=== PATIENT | female | born 1950 | race Caucasian/White ===

== ENCOUNTER 2017-06-30 20:06 | Outpatient (CLI) | payer MEDICARE, OTHER ==
[~2017-06-30 20:06] MED LIST: AMLO10TA82 PO; AMLO5TAB2 PO; ASCO500T20 PO; ASP81CT PO; ASPI-983 PO; ATEN25TA PO; ATOR40TA PO; ATR20T PO; ATRV10T PO; B 12; BIOT5TAB PO; C250T PO; CIPR-225 PO; CLOP75TA PO; DESV50TA PO; DIPH-450 PO; DOXA1TAB PO; FLT05NA16 NS; GBPN300C PO; LISI10TA2 PO; LISI40TA PO; LSNP10T PO; MELO7.5T PO; MNTL10T PO; NAPR-243 PO; NATURAL LAXATIVE PO; NEBI5TAB8 PO; OMEG-12 PO; OMEP20CA12 PO; OXYB5TAB9 PO; PRAS10TA6 PO; RANI75TA30 PO; RNT150T PO; SENN17.26 PO; SENN25TA9 PO; TRAM-21 PO; TRAZ150T42 PO; prestiq PO
== END 2017-07-01 05:45 | disposition home or self-care (01) ==
LOC: SLEEP 20:06
PROVIDERS: ATTEND Nurse Practitioner Family
DX: G47.33 Obstructive sleep apnea (adult) (pediatric) (principal)
CPT/HCPCS: 95811

== ENCOUNTER → 2017-11-07 | Outpatient (CLI) | payer MEDICARE ==
--- NOTE | 2017-11-07 13:06 | Diagnostic Imaging Report ---
PA and lateral views of the chest. INDICATION: COPD. COMPARISON: 09/17/2015. FINDINGS: The lungs are hyperinflated with prominent interstitial markings. Minimal bibasilar atelectasis is seen. Calcified granulomas in the lower right lung are seen. The heart size is normal. No effusion or pneumothorax. The mediastinum and eric appear unremarkable. IMPRESSION: COPD. Minimal bibasilar atelectasis. Dictated by: Dictated on workstation # [id number]
== END ==
LOC: RAD 10:43
PROVIDERS: ATTEND Nurse Practitioner Family
DX: J44.9 Chronic obstructive pulmonary disease, unspecified (principal); F17.201 Nicotine dependence, unspecified, in remission
CPT/HCPCS: 71020

== ENCOUNTER → 2017-11-30 | Outpatient (CLI) | payer MEDICARE | LOC: CARD 12:53 | PROVIDERS: ATTEND Internal Medicine Cardiovascular Disease | DX: I35.1 Nonrheumatic aortic (valve) insufficiency (principal); I25.10 Atherosclerotic heart disease of native coronary artery without angina pectoris; I10 Essential (primary) hypertension; I70.293 Other atherosclerosis of native arteries of extremities, bilateral legs | CPT/HCPCS: 93306 ==

== ENCOUNTER → 2018-08-10 | Outpatient (CLI) | payer MEDICARE, OTHER ==
--- NOTE | 2018-08-10 12:40 | Diagnostic Imaging Report ---
INDICATION: Cough for one week. TIME OF EXAM: 11:07 AM COMPARISON: Correlation is made with prior study from 11/07/2017. FINDINGS: The heart size is stable. The lungs are hyperinflated consistent with COPD. Calcified granuloma in the right base is stable. There are generalized interstitial changes which are likely chronic. Chronic blunting of the left costophrenic angle is noted consistent with minimal pleural fluid or pleural thickening. There is no pneumothorax. IMPRESSION: Overall stable appearance of the chest when compared to examination from 11/07/2017. Dictated by: Dictated on workstation # [id number]
== END ==
LOC: RAD 10:31
PROVIDERS: ATTEND Nurse Practitioner Family
DX: J44.9 Chronic obstructive pulmonary disease, unspecified (principal); J30.9 Allergic rhinitis, unspecified; J40 Bronchitis, not specified as acute or chronic
CPT/HCPCS: 71046

== ENCOUNTER → 2019-05-13 | Outpatient (CLI) | payer OTHER, MEDICARE ==
[~2019-05-13] MED LIST changes: +CATHETER FLUSH 10 ML SYR IV PRN; +REGADENOSON 0.4 MG/5 ML SYR (LEXISCAN) IV ONE
[2019-05-13 09:51] VITALS: BP 170/81
[2019-05-13 09:56] VITALS: BP 162/76
--- NOTE | 2019-05-14 18:43 | STRESS TEST ---
DATE OF SERVICE: 05/13/2019 LEXISCAN MYOVIEW STRESS TEST REFERRING PHYSICIAN: Dr. Woo. Baseline heart rate is 60. Baseline blood pressure 170/80. Baseline EKG is sinus rhythm with atrial premature contractions. SUMMARY: The patient was injected with 10.01 mCi of technetium-99 Myoview and the resting images were obtained. Then, the patient received 0.4 mg of Lexiscan followed by 29.1 mCi of technetium-99 Myoview. Throughout the test, there were no EKG changes. The resting and stress images were reviewed and compared in the short axis, horizontal long axis, and vertical long axis views. Review of the images showed good radiotracer uptake with no significant ischemia or infarction. SSS is 3, SDS 2, TID value 1.08. On the gated images, the left ventricle appeared to be in normal size with normal contractility. Calculated ejection fraction 55%. CONCLUSION: 1. The patient tolerated Lexiscan well. 2. No ischemia or infarction on SPECT images. 3. Normal left ventricular size with normal contractility. Calculated ejection fraction 55%. Job ID: [id number] DocumentID: [id number] Dictated Date: 05/14/2019 16:15:36 Industrial Equipment Mechanic Date: 05/14/2019 18:43:03 Dictated By: KRISTEN GELLER MD
== END ==
LOC: CARD 08:02
PROVIDERS: ATTEND Internal Medicine Cardiovascular Disease
DX: I71.4 Abdominal aortic aneurysm, without rupture (principal); I35.1 Nonrheumatic aortic (valve) insufficiency; I25.10 Atherosclerotic heart disease of native coronary artery without angina pectoris; I73.9 Peripheral vascular disease, unspecified; I10 Essential (primary) hypertension
CPT/HCPCS: 78452; 93017

== ENCOUNTER → 2019-07-08 | Outpatient (CLI) | payer MEDICARE, OTHER ==
[~2019-07-08] MED LIST changes: -CATHETER FLUSH 10 ML SYR IV PRN; -OMEP20CA12 PO; +OMEP20CA13 PO; -REGADENOSON 0.4 MG/5 ML SYR (LEXISCAN) IV ONE
--- NOTE | 2019-07-08 14:50 | Diagnostic Imaging Report ---
EXAMINATION: Chest CT without contrast (lung cancer screening). HISTORY: 15-taxg-pjll history of smoking. FINDINGS: No comparison available. Lungs are severely emphysematous. There is bronchial wall thickening in keeping with chronic bronchitis. No suspicious pulmonary nodules are seen. No edema or pneumonia. No pleural effusion or pneumothorax. Heart size is normal with trace amount of pericardial fluid. Aorta is normal in caliber. There is no axillary, supraclavicular or mediastinal lymphadenopathy. There are moderate coronary artery calcifications. There is a small fat containing Bochdalek hernia on the left. There are no suspicious osseous lesions. IMPRESSION: 1. No suspicious pulmonary nodules. LungRads category: 1 Modifier: None Dictated by: Dictated on workstation # [id number]
== END ==
LOC: RAD 10:40
PROVIDERS: ATTEND Nurse Practitioner Family
DX: Z12.2 Encounter for screening for malignant neoplasm of respiratory organs (principal)

== ENCOUNTER → 2020-01-29 | Outpatient (CLI) | payer MEDICARE ==
[~2020-01-29] MED LIST changes: -OMEP20CA13 PO; +OMEP20CA18 PO; +OXYB5TAB13 PO; -OXYB5TAB9 PO
--- NOTE | 2020-01-29 08:50 | Diagnostic Imaging Report ---
PROCEDURE: CT abdomen and pelvis without contrast. TECHNIQUE: Multiple contiguous axial images were obtained through the abdomen and pelvis without the use of intravenous contrast. Auto Exposure Controls were utilized during the CT exam to meet ALARA standards for radiation dose reduction. INDICATION: Urinary tract infection. FINDINGS: The previous CT abdomen/pelvis exam of 02/08/2013 noted postoperative changes consistent with prior aortofemoral bypass procedure. Those findings are again evident on this study. The patency of the graft is difficult to assess as intravenous contrast was not utilized for this exam. If further study is desired, then ultrasound would be recommended. In the interval since the prior study, minute nonobstructive calculi have developed in both kidneys. The kidneys themselves do not appear to be obstructed and there is no distortion of the perinephric fat to suggest pyelonephritis. Even so, clinical follow-up is recommended. In the interval since the prior exam a 1.7 cm rounded area of low density has developed along the posterior aspect of the left kidney. I suspect that this is a cyst. Ultrasound would be recommended to confirm this. The liver and spleen are not enlarged. There are several calcifications scattered throughout the spleen and a few calcifications in the liver. These are nonspecific but may be a sequela of prior exposure to histoplasmosis. The pancreas, the adrenals, the gallbladder and the inferior vena cava seem similar to the prior exam. The stomach is not well-distended and consequently difficult to assess. The images through the pelvis again show that the uterus is surgically absent. The urinary bladder is grossly unremarkable. There is no pelvic mass or free fluid collection evident. The appendix is not well-visualized but there are no indirect signs of acute appendicitis. The bone windows show no sign of a fracture or of a destructive lesion. The compression deformity of the superior endplate of L2 seen previously is again evident and not significantly changed. The lung bases are generally clear. There are chronic pulmonary changes evident however. IMPRESSION: 1. There is no acute abnormality of the abdomen or pelvis. In particular, there is no evidence for pyelonephritis. Correlation with patient's urinalysis would be recommended however. 2. There are small nonobstructive calculi within both kidneys. There also appears to be a left renal cyst. Ultrasound could confirm that this is indeed a cyst. 3. The aortofemoral bypass graft seen previously is again evident. If further evaluation of the patency of the graft is desired, then ultrasound would also be recommended. Dictated by: Dictated on workstation # [id number]
== END ==
LOC: RAD 07:44
PROVIDERS: ATTEND Urology
DX: N20.0 Calculus of kidney (principal); N32.81 Overactive bladder; N39.46 Mixed incontinence; R35.8 Other polyuria; Z87.440 Personal history of urinary (tract) infections
CPT/HCPCS: 74176

== ENCOUNTER → 2020-02-03 | Outpatient (CLI) | payer MEDICARE, OTHER | LOC: CARD 10:00 | PROVIDERS: ATTEND Internal Medicine Cardiovascular Disease | DX: I73.9 Peripheral vascular disease, unspecified (principal); I10 Essential (primary) hypertension; I25.10 Atherosclerotic heart disease of native coronary artery without angina pectoris; I35.1 Nonrheumatic aortic (valve) insufficiency; R00.2 Palpitations | CPT/HCPCS: 93306 ==

== ENCOUNTER → 2020-07-09 | Outpatient (CLI) | payer MEDICARE ==
--- NOTE | 2020-07-09 09:53 | Diagnostic Imaging Report ---
CT Lung Screening INDICATION:`1a1 TECHNIQUE: Noncontrast, low-dose CT imaging performed according to the lung cancer screening protocol. Auto Exposure Controls were utilize during the CT exam to meet ALARA standards for radiation dose reduction. COMPARISON:1`2 FINDINGS:Evaluation of the lung duncan demonstrate no suspicious pulmonary nodule or mass. Scattered benign calcified granuloma are noted. There is no focal consolidation, large effusion, nor pneumothorax. Advanced emphysematous disease is again noted. Cardiomediastinal structures show normal heart size. There is small pericardial effusion. Moderate calcified aortic and coronary atherosclerosis is present. A few small mediastinal lymph nodes are noted. No pathologically enlarged or morphologically abnormal adenopathy is identified within the eric or axilla. Osseous structures show no acute abnormalities. No lytic or blastic bony lesions are seen. Included portions of the upper abdomen are unremarkable as well. IMPRESSION: 1. No new suspicious pulmonary nodule or mass. Continued follow-up with annual low dose CT chest is recommended. 2. Redemonstration of background advanced emphysematous disease and moderate calcified aortic and coronary atherosclerosis. LUNG-RADS CATEGORY:1-S MODIFIER:As above OTHER SIGNIFICANT FINDINGS: As Above. Dictated by: Dictated on workstation # [id number]
== END ==
LOC: RAD 08:12
PROVIDERS: ATTEND Nurse Practitioner Family
DX: Z12.2 Encounter for screening for malignant neoplasm of respiratory organs (principal); J43.9 Emphysema, unspecified; I70.0 Atherosclerosis of aorta; I25.10 Atherosclerotic heart disease of native coronary artery without angina pectoris; F17.201 Nicotine dependence, unspecified, in remission

== ENCOUNTER → 2020-07-23 | Outpatient (CLI) | payer MEDICARE ==
--- NOTE | 2020-07-23 10:47 | Diagnostic Imaging Report ---
INDICATION: Abdominal aortic aneurysm and hypertension. Only the proximal abdominal aorta could be well visualized. Proximal aorta is approximately 1.8 cm AP x 2.0 cm transverse. The mid and distal aorta are poorly visualized due to overlying bowel gas. IMPRESSION: Limited study. Proximal aorta is unremarkable. Mid and distal aorta were not well visualized. If there is concern for abdominal aortic aneurysm, CT would be recommended for further evaluation. Dictated by: Dictated on workstation # [id number]
== END ==
LOC: RAD 08:00
PROVIDERS: ATTEND Physician Assistant
DX: I71.4 Abdominal aortic aneurysm, without rupture (principal); I25.10 Atherosclerotic heart disease of native coronary artery without angina pectoris; I10 Essential (primary) hypertension; I73.9 Peripheral vascular disease, unspecified
CPT/HCPCS: 76775

== ENCOUNTER → 2021-07-12 | Outpatient (CLI) | payer MEDICARE ==
[~2021-07-12] MED LIST changes: +ASPI-1238 PO; -ASPI-983 PO; -LISI10TA2 PO; +LISI10TA25 PO; -LISI40TA PO; +LISI40TA9 PO
--- NOTE | 2021-07-12 13:59 | Diagnostic Imaging Report ---
EXAMINATION: CT chest without contrast (lung screening). TECHNIQUE: Multiple contiguous axial images were obtained through the chest without the use of intravenous contrast according to lung cancer screening protocol. All CT scans use one or more of the following dose optimizing techniques: Automated exposure control, MA and/or KvP adjustment based on patient size and exam type or iterative reconstruction. HISTORY: 99-fchr-foxo history of smoking. COMPARISON: CT screening 07/09/2020. FINDINGS: Thyroid: The thyroid is normal. Mediastinum: Heart size is normal with small pericardial effusion. Calcifications of the aorta and coronary vessels. Thoracic aorta is normal in caliber. No suspicious lymphadenopathy. Lungs and airways: Background emphysematous changes of the lungs. No consolidation, pleural effusion, or pneumothorax. Scattered calcified granulomas. Atelectasis is present within the lung bases. No suspicious pulmonary nodule. The airways are normal. Upper abdomen: The subphrenic structures are normal. Musculoskeletal: Degenerative changes of the spine without suspicious osseous lesion or compression fracture. IMPRESSION: 1. No suspicious pulmonary nodules. Recommend continued annual low-dose CT screening. 2. COPD. LUNG-RADS CATEGORY: 1 MODIFIER: S Dictated by: Dictated on workstation # [id number]
== END ==
LOC: RAD 12:45
PROVIDERS: ATTEND Nurse Practitioner Family
DX: Z12.2 Encounter for screening for malignant neoplasm of respiratory organs (principal); Z87.891 Personal history of nicotine dependence
CPT/HCPCS: 71271

== ENCOUNTER → 2021-08-09 | Outpatient (CLI) | payer MEDICARE ==
[~2021-08-09] MED LIST changes: +RT-ALBUTEROL SULF 2.5 MG/3 ML PRE-MIX VIAL IH ONE; +RT-ALBUTEROL SULF 2.5 MG/3 ML PRE-MIX VIAL INH ONE
--- NOTE | 2021-08-09 14:10 | Diagnostic Imaging Report ---
PROCEDURE: CT urinary tract, rule out kidney stone. TECHNIQUE: Multiple contiguous axial images were obtained through the abdomen and pelvis without the use of intravenous contrast. Auto Exposure Controls were utilized during the CT exam to meet ALARA standards for radiation dose reduction. INDICATION: Frequent urinary tract infections. COMPARISON: Comparison is made with prior CT from 01/29/2020. FINDINGS: The lung bases are clear of acute infiltrates. The liver is unremarkable. The gallbladder is contracted. There is no biliary ductal dilatation. The pancreas and spleen are unremarkable. No adrenal mass is identified. Calcific densities within both kidneys are again noted, indeterminate between nephrolithiasis versus vascular calcifications. The low-density lesion in the left kidney appears stable at 18 mm. No ureteral calculi or hydronephrosis is detected. Aortobifemoral graft is again noted. Bowel loops are normal in caliber. There is no obstruction. The bladder is unremarkable. There is no free fluid or fluid collection. No inflammatory changes are identified. IMPRESSION: Stable noncontrast CT of the abdomen and pelvis when compared with exam from 01/29/2020. No acute abnormality is identified. Dictated by: Dictated on workstation # [id number]
== END ==
LOC: RAD 13:45
PROVIDERS: ATTEND Nurse Practitioner Family
DX: J44.9 Chronic obstructive pulmonary disease, unspecified (principal); N39.0 Urinary tract infection, site not specified
CPT/HCPCS: 74176; 94060; 94726; 94729

== ENCOUNTER → 2021-08-23 | Outpatient (CLI) | payer MEDICARE ==
[~2021-08-23] MED LIST changes: -RT-ALBUTEROL SULF 2.5 MG/3 ML PRE-MIX VIAL IH ONE; -RT-ALBUTEROL SULF 2.5 MG/3 ML PRE-MIX VIAL INH ONE
--- NOTE | 2021-08-23 16:34 | Diagnostic Imaging Report ---
PROCEDURE: US Renal Bilateral. TECHNIQUE: Multiple real-time grayscale images were obtained over the kidneys in various projections bilaterally. INDICATION: Left kidney lesion noted on recent CT. Correlation is made with CT study from 08/09/2021. Right kidney measures 8.7 x 4.2 x 4.6 cm and the left kidney measures 8.9 x 4.4 x 4.4 cm. Cortical thickness and echogenicity is normal. There is a hypoechoic lesion in the left kidney measuring 1.8 x 1.5 x 1.9 cm. No internal vascularity is seen. This is suggestive of a cyst. No calculi or hydronephrosis is seen. Bladder is unremarkable although the right ureteral jet was not visualized. IMPRESSION: Probable cyst lower pole left kidney correlating with CT abnormality. Dictated by: Dictated on workstation # [id number]
== END ==
LOC: RAD 12:00
PROVIDERS: ATTEND Nurse Practitioner Family
DX: N28.9 Disorder of kidney and ureter, unspecified (principal)
CPT/HCPCS: 76770

== ENCOUNTER → 2022-01-24 | Outpatient (CLI) | payer MEDICARE ==
[~2022-01-24] VITALS: Ht 162 cm; Wt 73.0 kg
[~2022-01-24] MED LIST changes: +CATHETER FLUSH 10 ML SYR IVP PRN; +REGADENOSON 0.4 MG/5 ML SYR (LEXISCAN) IV ONE
[2022-01-24 09:49] VITALS: BP 149/73
--- NOTE | 2022-01-24 11:23 | Cardiology Stress Test Report ---
Stress Test Report Date of Procedure/Referring: Date of Procedure: Jan 24, 2022 PCP Kristen Morris MD Admitting Physician Cielo Woo DO Indications: HTN Baseline Heart Rate: 91 Baseline Blood Pressure: Blood Pressure Systolic: 149 Blood Pressure Diastolic: 73 Baseline Vitals Vital Signs Date Time Temp Pulse Resp B/P (MAP) Pulse Ox O2 Delivery O2 Flow Rate FiO2 01/24/22 09:49 91 149/73 (98) Baseline EKG: Baseline EKG: NSR Summary After explaining the procedure to the patient, she signed a consent and then brought to the stress nuclear laboratory. Patient received 0.4 mg Lexiscan for stress test, ECG, heart rate and blood pressure were monitored continuously. Resting and stress dose of radio tracer were injected, imaging was acquired and reviewed in short axis, horizontal long axis and vertical long axis views. TID: 1.07 SSS: 1 SDS: 1 EF: 53 1. Patient tolerated Lexiscan well 2. Breast attenuation with mild decrease uptake involving the anterior apical segment with mild reversibility. Could be secondary to the breast attenuation 3. Normal left ventricular size, EF 53% KRISTEN MORRIS MD Jan 24, 2022 11:22
== END ==
LOC: CARD 08:30
PROVIDERS: ATTEND Internal Medicine Cardiovascular Disease
DX: I10 Essential (primary) hypertension (principal); I25.10 Atherosclerotic heart disease of native coronary artery without angina pectoris
CPT/HCPCS: 78452; 93017; A9502

== ENCOUNTER → 2022-08-19 | Outpatient (CLI) | payer MEDICARE ==
[~2022-08-19] MED LIST changes: -CATHETER FLUSH 10 ML SYR IVP PRN; -REGADENOSON 0.4 MG/5 ML SYR (LEXISCAN) IV ONE
== END ==
LOC: CARD 08:14
PROVIDERS: ATTEND Physician Assistant
DX: I10 Essential (primary) hypertension (principal)
CPT/HCPCS: 93306

== ENCOUNTER → 2023-02-02 | Outpatient (CLI) | payer MEDICARE ==
--- NOTE | 2023-02-02 17:24 | Diagnostic Imaging Report ---
INDICATION: Dyspnea PA and lateral chest obtained at 12:59 p.m. and compared to 08/10/2018. Heart is borderline in size. There is central vascular congestion with chronic appearing increased interstitial markings. There is hyperinflation compatible with COPD. There is no pleural fluid or pneumothorax. IMPRESSION: COPD changes and extensive interstitial fibrotic changes. No consolidation or pleural fluid. Dictated by: Dictated on workstation # [id number]
== END ==
LOC: RAD 12:39
PROVIDERS: ATTEND Nurse Practitioner Family
DX: J44.9 Chronic obstructive pulmonary disease, unspecified (principal); J84.9 Interstitial pulmonary disease, unspecified
CPT/HCPCS: 71046